=== PATIENT | female | born 1985 | race Caucasian/White ===

== ENCOUNTER 2021-01-01 16:32 | Observation (INO) ==
[2021-01-01] MEDS ORDERED: ONDANSETRON 4 MG/2 ML VIAL IV ONE (18:27)
[2021-01-01] MEDS: SODIUM CHLOR 0.9% KCL 40 MEQ 40 MEQ/1,000 ML BAG IV SCH (19:17)
[2021-01-01 19:30] LABS: Basophils # 0.1 10*3/uL (0.0-0.2); Basophils % 0.9 % (0.0-0.8); Eosinophils % 0.2 % (0.00-10.9); Hematocrit 34.3 VOL% (35.7-47.0); Immature Granulocytes % 0.6 %; Immature Granulocytes Absolute 0.06 #; Lymphocytes # 1.4 10*3/uL (1.4-4.0); Lymphocytes % 13.4 % (21.3-54.2); Mean Corpuscular Volume 112.1 FL (87-102); Mean Platelet Volume 11.1 FL (9.6-12.0); Monocytes % 8.9 % (1.7-12.7); Platelet Count 153 T/CUMM (130-400); Red Blood Count 3.06 MC/CUMM (3.8-5.5); Red Cell Distribution Width 13.7 % (9.3-17.3); White Blood Count 10.7 T/CUMM (4-12)
[2021-01-01 19:41] LABS: INR 1.9; PT Patient Result 19.5 SECS (9.8-11.9); Partial Thromboplastin Time 38.1 SECS (23.9-33.8)
[2021-01-01 20:01] LABS: Albumin 2.8 G/DL (3.4-5.0); Bilirubin,Total 3.8 MG/DL (0.2-1.0); Osmolality,Calculated 262.2 MOS/KG (273-304); Potassium 2.8 MMOL/L (3.5-5.1); Total Protein 7.4 G/DL (6.4-8.3)
[2021-01-01] MEDS ORDERED: MORPHINE 4 MG/1 ML VIAL IV STA (20:18)
[2021-01-01] MEDS ORDERED: ONDANSETRON 4 MG/2 ML VIAL IV STA (20:19)
[2021-01-01 20:29] LABS: Bacteria,Urine Occasional /HPF (Few); Bilirubin,Urine Negative (Negative); Blood, Urine Small mg/dL (Negative); Glucose,Urine (UA) Negative (Negative); Ketones,Urine Negative (Negative); Nitrite,Urine Negative (Negative); Protein,Urine Negative; RBC,Urine 4 /HPF (0-4); Squamous Epithelial Cell,Urine Occasional /HPF (0-10); Urine Appearance Slightly Hazy (Clear); Urine Color Yellow (Yellow); Urine Specific Gravity 1.025 (1.001-1.035); Urine Urobilinogen < 2.0 EU/DL (0.2-1.0); WBC,Urine 95 /HPF (0-6)
[2021-01-01] MEDS ORDERED: cefTRIAXone 1,000 MG in SODIUM CHLORIDE 0.9% 100 ML IV STA (20:46)
[2021-01-01 20:52] LABS: Hepatitis B Core IgM Quant < 0.05 Index; Hepatitis B Surface Ag Quant < 0.10 Index; Hepatitis B Surface Ag Result Non-Reactive (NonReactive); Hepatitis C Virus Ab Quant 0.05 Index; Hepatitis C Virus Ab Result Non-Reactive (NonReactive)
[2021-01-01] MEDS ORDERED: DEXTROSE 50% 25 GM/50 ML VIAL IV PRN (21:04)
[2021-01-01] MEDS ORDERED: GLUCAGON 1 MG VIAL IM PRN (21:04)
[2021-01-01] MEDS ORDERED: MAGNESIUM SULF RIDER 2 GM in PREMIX 1 EACH IV ONE (21:15)
[2021-01-01] MEDS ORDERED: LORazepam 2 MG/1 ML VIAL IV PRN (21:16)
[2021-01-01] MEDS: MORPHINE 4 MG/1 ML VIAL IV PRN (23:11)
[2021-01-01] MEDS: ONDANSETRON 4 MG/2 ML VIAL IV PRN (23:12)
[2021-01-02] MEDS: chlordiazePOXIDE 25 MG CAPSULE PO SCH ×3 (00:34→10:40)
[2021-01-02] MEDS: SODIUM CHLOR 0.9% KCL 40 MEQ 40 MEQ/1,000 ML BAG IV SCH (06:23)
[2021-01-02 07:35] LABS: Basophils # 0.1 10*3/uL (0.0-0.2); Basophils % 0.7 % (0.0-0.8); Eosinophils % 0.4 % (0.00-10.9); Hematocrit 31.3 VOL% (35.7-47.0); Hemoglobin 10.7 GM/DL (12.0-16.0); Immature Granulocytes % 0.6 %; Immature Granulocytes Absolute 0.06 #; Lymphocytes # 1.5 10*3/uL (1.4-4.0); Lymphocytes % 15.3 % (21.3-54.2); Mean Corpuscular HGB Conc 34.2 GM/DL (32-36); Mean Corpuscular Volume 113.8 FL (87-102); Mean Platelet Volume 11.2 FL (9.6-12.0); Monocytes % 12.2 % (1.7-12.7); Neutrophils % 70.8 % (38.7-73.9); Platelet Count 125 T/CUMM (130-400); Red Blood Count 2.75 MC/CUMM (3.8-5.5); Red Cell Distribution Width 14.1 % (9.3-17.3); White Blood Count 9.8 T/CUMM (4-12)
[2021-01-02] MEDS: MORPHINE 4 MG/1 ML VIAL IV PRN (07:46)
[2021-01-02] MEDS: ONDANSETRON 4 MG/2 ML VIAL IV PRN (07:47)
[2021-01-02 07:51] LABS: Albumin 2.5 G/DL (3.4-5.0); Bilirubin,Total 4.3 MG/DL (0.2-1.0); Calcium 7.7 MG/DL (8.5-10.1); Osmolality,Calculated 258.5 MOS/KG (273-304); Potassium 2.9 MMOL/L (3.5-5.1); Total Protein 6.7 G/DL (6.4-8.3)
[2021-01-02 08:43] LABS: Anisocytosis 1+; Macrocytosis 1+; Platelet Estimate Adequate
[2021-01-02] MEDS ORDERED: PANTOPRAZOLE 40 MG TABLET PO SCH (09:00)
[2021-01-02] MEDS ORDERED: THIAMINE 100 MG TABLET PO SCH (09:00)
[2021-01-02] MEDS ORDERED: MULTIVITAMIN (CENTRUM) TABLET PO SCH (09:00)
[2021-01-02] MEDS ORDERED: FOLIC ACID 1 MG TABLET PO SCH (09:00)
[2021-01-02 10:27] LABS: INR 1.3; PT Patient Result 13.6 SECS (9.8-11.9)
[2021-01-02] MEDS ORDERED: POTASSIUM CHLORIDE 20 MEQ TABLET PO ONE (11:05)
[2021-01-02 12:25] VITALS: BP 113/74
[2021-01-02] MEDS ORDERED: cefTRIAXone 1,000 MG in SODIUM CHLORIDE 0.9% 100 ML IV SCH (20:00)
== END 2021-01-02 13:35 | disposition home or self-care (01) | DRG 433 ==
LOC: N.ED 16:32 → INTOOBSV 21:05 → N.EDINP 21:05 → N.4E 22:47
PROVIDERS: ADMIT Internal Medicine; ATTEND Internal Medicine

== ENCOUNTER 2021-01-06 15:32 | Inpatient (IN) ==
[2021-01-06 17:19] LABS: Basophils # 0.1 10*3/uL (0.0-0.2); Basophils % 0.7 % (0.0-0.8); Eosinophils # 0.1 10*3/uL (0.0-0.87); Eosinophils % 0.7 % (0.00-10.9); Hematocrit 31.9 VOL% (35.7-47.0); Hemoglobin 10.8 GM/DL (12.0-16.0); Immature Granulocytes % 1.4 %; Immature Granulocytes Absolute 0.14 #; Lymphocytes # 1.9 10*3/uL (1.4-4.0); Lymphocytes % 19.3 % (21.3-54.2); Mean Corpuscular HGB Conc 33.9 GM/DL (32-36); Mean Corpuscular Volume 116.4 FL (87-102); Mean Platelet Volume 11.3 FL (9.6-12.0); Monocytes % 17.4 % (1.7-12.7); Neutrophils % 60.5 % (38.7-73.9); Platelet Count 174 T/CUMM (130-400); Red Blood Count 2.74 MC/CUMM (3.8-5.5); Red Cell Distribution Width 15.4 % (9.3-17.3); White Blood Count 9.9 T/CUMM (4-12)
[2021-01-06 17:25] LABS: Blood, Urine Negative (Negative); Glucose,Urine (UA) Negative (Negative); Ketones,Urine Negative (Negative); Nitrite,Urine Positive (Negative); Protein,Urine Negative; RBC,Urine 1 /HPF (0-4); Squamous Epithelial Cell,Urine Few /HPF (0-10); Urine Appearance CLEAR (Clear); Urine Color Amber (Yellow); Urine Specific Gravity 1.003 (1.001-1.035); WBC,Urine 3 /HPF (0-6)
[2021-01-06 17:32] LABS: Bilirubin,Urine Small mg/dL (Negative)
[2021-01-06 17:35] LABS: Alanine Aminotransferase 59 U/L (13-56); Albumin 2.5 G/DL (3.4-5.0); Alkaline Phosphatase 331 U/L (45-117); Amylase 20 U/L (25-115); Aspartate Amino Transferase 200 U/L (0-37); Blood Urea Nitrogen 4 MG/DL (7-18); Calcium 8.3 MG/DL (8.5-10.1); Carbon Dioxide 29 MMOL/L (21-32); Estimated Glom Filtration Rate 105 ML/MIN; Glucose 94 MG/DL (74-106); Osmolality,Calculated 256.8 MOS/KG (273-304); Potassium 2.6 MMOL/L (3.5-5.1); Sodium 130 MMOL/L (136-145); Total Protein 6.8 G/DL (6.4-8.9)
[2021-01-06 17:37] LABS: INR 1.6; PT Patient Result 16.6 SECS (9.8-11.9); Partial Thromboplastin Time 31.4 SECS (23.9-33.8)
[2021-01-06 17:48] LABS: Eosinophils 1 % (0-10); Lymphocytes 22 % (20-55); Segmented Neutrophils 64 % (50-85); Total Cells Counted 100
[2021-01-06 17:54] LABS: Polychromasia Few
[2021-01-06 17:55] LABS: Anisocytosis 1+; Macrocytosis 1+; Platelet Estimate Adequate; Target Cells Few
[2021-01-06] MEDS ORDERED: SODIUM CHLORIDE 0.9% 1,000 ML IV STA (18:48)
[2021-01-06] MEDS ORDERED: PIPERACILLIN/TAZOBACTAM 3,375 MG in SODIUM CHLORIDE 0.9% 100 ML IV STA (18:48)
[2021-01-06] MEDS ORDERED: POTASSIUM CHLORIDE 20 MEQ TABLET PO STA (18:49)
[2021-01-06] MEDS ORDERED: DEXTROSE 50% 25 GM/50 ML VIAL IV PRN (19:36)
[2021-01-06] MEDS ORDERED: GLUCAGON 1 MG VIAL IM PRN (19:36)
[2021-01-06] MEDS: SODIUM CHLOR 0.9% KCL 40 MEQ 40 MEQ/1,000 ML BAG IV SCH (21:30)
[2021-01-06] MEDS: cefTRIAXone 2,000 MG in SYRINGE 1 EACH IV SCH (21:30)
[2021-01-06] MEDS: MORPHINE 4 MG/1 ML VIAL IV PRN (22:26)
[2021-01-06] MEDS: IBUPROFEN 600 MG TABLET PO PRN (22:27)
[2021-01-06] MEDS: ONDANSETRON 4 MG/2 ML VIAL IV PRN (22:27)
[2021-01-07 04:58] LABS: Basophils # 0.1 10*3/uL (0.0-0.2); Basophils % 0.6 % (0.0-0.8); Eosinophils # 0.1 10*3/uL (0.0-0.87); Eosinophils % 0.9 % (0.00-10.9); Hematocrit 29.7 VOL% (35.7-47.0); Hemoglobin 9.9 GM/DL (12.0-16.0); Immature Granulocytes % 1.9 %; Immature Granulocytes Absolute 0.16 #; Lymphocytes # 1.5 10*3/uL (1.4-4.0); Lymphocytes % 17.2 % (21.3-54.2); Mean Corpuscular HGB Conc 33.3 GM/DL (32-36); Mean Corpuscular Volume 117.4 FL (87-102); Mean Platelet Volume 11.4 FL (9.6-12.0); Monocytes % 16.2 % (1.7-12.7); Neutrophils % 63.2 % (38.7-73.9); Platelet Count 187 T/CUMM (130-400); Red Blood Count 2.53 MC/CUMM (3.8-5.5); Red Cell Distribution Width 15.8 % (9.3-17.3); White Blood Count 8.6 T/CUMM (4-12)
[2021-01-07 05:29] LABS: Calcium 7.7 MG/DL (8.5-10.1); Osmolality,Calculated 264.4 MOS/KG (273-304); Potassium 3.3 MMOL/L (3.5-5.1)
[2021-01-07] MEDS: SODIUM CHLOR 0.9% KCL 40 MEQ 40 MEQ/1,000 ML BAG IV SCH ×2 (05:43→15:27)
[2021-01-07 06:25] LABS: Atypical Lymphocytes Few; Band Neutrophils 5 % (0-10); Eosinophils 3 % (0-10); Lymphocytes 14 % (20-55); Segmented Neutrophils 60 % (50-85); Total Cells Counted 100
[2021-01-07 06:26] LABS: Hypochromasia 1+; Macrocytosis 1+; Target Cells Slight
[2021-01-07 06:27] LABS: Platelet Estimate Adequate; Polychromasia Slight; Stomatocytes Slight
[2021-01-07 09:13] LABS: Albumin 2.4 G/DL (3.4-5.0); Bilirubin,Total 8.2 MG/DL (0.2-1.0); Calcium 7.7 MG/DL (8.5-10.1); Osmolality,Calculated 265.2 MOS/KG (273-304); Potassium 3.5 MMOL/L (3.5-5.1); Total Protein 6.1 G/DL (6.4-8.9)
[2021-01-07] MEDS: PANTOPRAZOLE 40 MG TABLET PO SCH (09:42)
[2021-01-07] MEDS: predniSONE 20 MG TABLET PO SCH (09:42)
[2021-01-07] MEDS: MORPHINE 4 MG/1 ML VIAL IV PRN ×2 (13:03→21:09)
[2021-01-07] MEDS: ONDANSETRON 4 MG/2 ML VIAL IV PRN (21:08)
[2021-01-07] MEDS: cefTRIAXone 2,000 MG in SYRINGE 1 EACH IV SCH (21:09)
[2021-01-08] MEDS: SODIUM CHLOR 0.9% KCL 40 MEQ 40 MEQ/1,000 ML BAG IV SCH ×2 (01:21→17:55)
[2021-01-08] MEDS: ONDANSETRON 4 MG/2 ML VIAL IV PRN ×3 (05:33→21:01)
[2021-01-08] MEDS: MORPHINE 4 MG/1 ML VIAL IV PRN ×3 (05:34→21:07)
[2021-01-08 05:56] LABS: Basophils # 0.1 10*3/uL (0.0-0.2); Basophils % 0.4 % (0.0-0.8); Eosinophils % 0.1 % (0.00-10.9); Hematocrit 29.6 VOL% (35.7-47.0); Hemoglobin 10.1 GM/DL (12.0-16.0); Immature Granulocytes % 2.5 %; Immature Granulocytes Absolute 0.29 #; Lymphocytes # 1.2 10*3/uL (1.4-4.0); Mean Corpuscular HGB Conc 34.1 GM/DL (32-36); Mean Corpuscular Volume 115.2 FL (87-102); Mean Platelet Volume 11.8 FL (9.6-12.0); Monocytes % 12.9 % (1.7-12.7); NRBC # 0.02 10*3/uL; Neutrophils % 74.1 % (38.7-73.9); Platelet Count 226 T/CUMM (130-400); Red Blood Count 2.57 MC/CUMM (3.8-5.5); Red Cell Distribution Width 16.1 % (9.3-17.3); White Blood Count 11.7 T/CUMM (4-12)
[2021-01-08 06:14] LABS: Albumin 2.1 G/DL (3.4-5.0); Bilirubin,Total 7.5 MG/DL (0.2-1.0); Calcium 7.7 MG/DL (8.5-10.1); Osmolality,Calculated 266.1 MOS/KG (273-304); Potassium 3.6 MMOL/L (3.5-5.1)
[2021-01-08] MEDS: predniSONE 20 MG TABLET PO SCH (08:43)
[2021-01-08] MEDS: PANTOPRAZOLE 40 MG TABLET PO SCH (08:43)
[2021-01-08] MEDS: cefTRIAXone 2,000 MG in SYRINGE 1 EACH IV SCH (21:01)
[2021-01-08] MEDS: ZALEPLON 5 MG CAPSULE PO PRN ×2 (21:02→21:17)
[2021-01-09] MEDS: MORPHINE 4 MG/1 ML VIAL IV PRN ×3 (04:16→20:05)
[2021-01-09] MEDS: ONDANSETRON 4 MG/2 ML VIAL IV PRN ×2 (04:17→20:02)
[2021-01-09 06:01] LABS: Basophils % 0.3 % (0.0-0.8); Eosinophils # 0.1 10*3/uL (0.0-0.87); Eosinophils % 0.4 % (0.00-10.9); Hematocrit 33.4 VOL% (35.7-47.0); Immature Granulocytes Absolute 0.27 #; Lymphocytes # 2.1 10*3/uL (1.4-4.0); Lymphocytes % 15.1 % (21.3-54.2); Mean Corpuscular HGB Conc 32.9 GM/DL (32-36); Mean Corpuscular Volume 121.5 FL (87-102); Mean Platelet Volume 11.1 FL (9.6-12.0); Monocytes % 13.9 % (1.7-12.7); Neutrophils % 68.3 % (38.7-73.9); Platelet Count 331 T/CUMM (130-400); Red Blood Count 2.75 MC/CUMM (3.8-5.5); Red Cell Distribution Width 17.1 % (9.3-17.3); White Blood Count 13.8 T/CUMM (4-12)
[2021-01-09 06:21] LABS: Calcium 7.6 MG/DL (8.5-10.1); Osmolality,Calculated 268.8 MOS/KG (273-304); Potassium 4.3 MMOL/L (3.5-5.1)
[2021-01-09 06:26] LABS: Platelet Estimate Adequate
[2021-01-09 06:28] LABS: Albumin 2.2 G/DL (3.4-5.0); Bilirubin,Direct 5.81 MG/DL (0.0-0.20); Bilirubin,Indirect 1.4 MG/DL (0.0-1.0); Bilirubin,Total 7.2 MG/DL (0.2-1.0); Total Protein 6.2 G/DL (5.0-7.5)
[2021-01-09] MEDS: LORazepam 2 MG/1 ML VIAL IV PRN (06:31)
[2021-01-09] MEDS ORDERED: MAGNESIUM SULF RIDER 2 GM in PREMIX 1 EACH IV ONE (09:09)
[2021-01-09] MEDS: PANTOPRAZOLE 40 MG TABLET PO SCH ×2 (09:24→09:33)
[2021-01-09] MEDS: predniSONE 20 MG TABLET PO SCH ×2 (09:24→09:33)
[2021-01-09] MEDS: FOLIC ACID 1 MG TABLET PO SCH ×2 (09:24→09:33)
[2021-01-09] MEDS: MULTIVITAMIN (OCUVITE) TABLET PO SCH ×2 (09:24→09:33)
[2021-01-09] MEDS: THIAMINE 200 MG/2 ML VIAL IV SCH (09:25)
[2021-01-09] MEDS: SODIUM CHLOR 0.9% KCL 40 MEQ 40 MEQ/1,000 ML BAG IV SCH ×2 (11:16)
[2021-01-09] MEDS: SODIUM CHLORIDE 0.9% 1,000 ML IV SCH (13:12)
[2021-01-09] MEDS: IBUPROFEN 600 MG TABLET PO PRN (13:12)
[2021-01-09 14:09] LABS: Hepatitis B Core IgM Quant < 0.05 Index; Hepatitis B Surface Ag Quant < 0.10 Index; Hepatitis B Surface Ag Result Non-Reactive (NonReactive); Hepatitis C Virus Ab Quant 0.04 Index; Hepatitis C Virus Ab Result Non-Reactive (NonReactive)
[2021-01-09] MEDS: PIPERACILLIN/TAZOBACTAM 3,375 MG in SODIUM CHLORIDE 0.9% 100 ML IV SCH ×2 (16:10→21:45)
[2021-01-09] MEDS: ENOXAPARIN 40 MG/0.4 ML SYRINGE SUBCUT SCH (16:11)
[2021-01-09 17:03] LABS: Blood, Urine Negative (Negative); Glucose,Urine (UA) Negative (Negative); Ketones,Urine Negative (Negative); Nitrite,Urine Negative (Negative); Protein,Urine Negative; Squamous Epithelial Cell,Urine Occasional /HPF (0-10); Urine Appearance CLEAR (Clear); Urine Color Amber (Yellow)
[2021-01-09 17:05] LABS: Bilirubin,Urine Small mg/dL (Negative)
[2021-01-10] MEDS: SODIUM CHLORIDE 0.9% 1,000 ML IV SCH ×4 (00:03→15:50)
[2021-01-10] MEDS: ZALEPLON 5 MG CAPSULE PO PRN ×2 (01:37→21:42)
[2021-01-10 02:48] LABS: Basophils # 0.1 10*3/uL (0.0-0.2); Basophils % 0.7 % (0.0-0.8); Eosinophils % 0.3 % (0.00-10.9); Hematocrit 31.5 VOL% (35.7-47.0); Hemoglobin 10.5 GM/DL (12.0-16.0); Immature Granulocytes % 1.5 %; Immature Granulocytes Absolute 0.22 #; Lymphocytes # 1.8 10*3/uL (1.4-4.0); Lymphocytes % 12.3 % (21.3-54.2); Mean Corpuscular HGB Conc 33.3 GM/DL (32-36); Mean Corpuscular Volume 119.8 FL (87-102); Mean Platelet Volume 10.8 FL (9.6-12.0); NRBC # 0.02 10*3/uL; Neutrophils % 74.2 % (38.7-73.9); Platelet Count 342 T/CUMM (130-400); Red Blood Count 2.63 MC/CUMM (3.8-5.5); Red Cell Distribution Width 16.8 % (9.3-17.3); White Blood Count 14.9 T/CUMM (4-12)
[2021-01-10 03:10] LABS: Albumin 2.1 G/DL (3.4-5.0); Bilirubin,Total 6.9 MG/DL (0.2-1.0); Calcium 7.1 MG/DL (8.5-10.1); Osmolality,Calculated 273.5 MOS/KG (273-304); Potassium 3.6 MMOL/L (3.5-5.1); Total Protein 5.8 G/DL (5.0-7.5)
[2021-01-10 03:57] LABS: Platelet Estimate Adequate
[2021-01-10] MEDS: ONDANSETRON 4 MG/2 ML VIAL IV PRN ×2 (04:58→19:17)
[2021-01-10] MEDS: MORPHINE 4 MG/1 ML VIAL IV PRN ×3 (05:00→19:17)
[2021-01-10] MEDS: PIPERACILLIN/TAZOBACTAM 3,375 MG in SODIUM CHLORIDE 0.9% 100 ML IV SCH ×3 (05:30→21:41)
[2021-01-10] MEDS: MULTIVITAMIN (OCUVITE) TABLET PO SCH (08:51)
[2021-01-10] MEDS: LORazepam 2 MG/1 ML VIAL IV PRN (08:51)
[2021-01-10] MEDS: THIAMINE 200 MG/2 ML VIAL IV SCH (08:51)
[2021-01-10] MEDS: FOLIC ACID 1 MG TABLET PO SCH (08:51)
[2021-01-10] MEDS: predniSONE 20 MG TABLET PO SCH (08:51)
[2021-01-10] MEDS: PANTOPRAZOLE 40 MG TABLET PO SCH (08:51)
[2021-01-10] MEDS: ENOXAPARIN 40 MG/0.4 ML SYRINGE SUBCUT SCH (14:44)
[2021-01-11] MEDS: SODIUM CHLORIDE 0.9% 1,000 ML IV SCH ×4 (01:06→18:22)
[2021-01-11] MEDS: ONDANSETRON 4 MG/2 ML VIAL IV PRN ×3 (03:49→20:31)
[2021-01-11] MEDS: MORPHINE 4 MG/1 ML VIAL IV PRN ×3 (03:51→14:33)
[2021-01-11 06:10] LABS: Basophils # 0.1 10*3/uL (0.0-0.2); Basophils % 0.4 % (0.0-0.8); Eosinophils # 0.2 10*3/uL (0.0-0.87); Hematocrit 29.9 VOL% (35.7-47.0); Hemoglobin 10.2 GM/DL (12.0-16.0); Immature Granulocytes % 1.6 %; Immature Granulocytes Absolute 0.24 #; Lymphocytes # 2.1 10*3/uL (1.4-4.0); Lymphocytes % 14.6 % (21.3-54.2); Mean Corpuscular HGB Conc 34.1 GM/DL (32-36); Mean Corpuscular Volume 114.1 FL (87-102); Mean Platelet Volume 10.8 FL (9.6-12.0); Monocytes % 9.2 % (1.7-12.7); NRBC # 0.02 10*3/uL; Neutrophils % 73.2 % (38.7-73.9); Platelet Count 342 T/CUMM (130-400); Red Blood Count 2.62 MC/CUMM (3.8-5.5); Red Cell Distribution Width 16.3 % (9.3-17.3); White Blood Count 14.6 T/CUMM (4-12)
[2021-01-11] MEDS: PIPERACILLIN/TAZOBACTAM 3,375 MG in SODIUM CHLORIDE 0.9% 100 ML IV SCH ×3 (06:15→22:42)
[2021-01-11 06:35] LABS: Bilirubin,Total 6.9 MG/DL (0.2-1.0); Calcium 7.3 MG/DL (8.5-10.1); Osmolality,Calculated 269.7 MOS/KG (273-304); Potassium 3.3 MMOL/L (3.5-5.1); Total Protein 5.6 G/DL (5.0-7.5)
[2021-01-11 06:40] LABS: Hypochromasia 1+; Macrocytosis 1+; Target Cells Few
[2021-01-11 06:41] LABS: Platelet Estimate Normal
[2021-01-11] MEDS: PANTOPRAZOLE 40 MG TABLET PO SCH (09:07)
[2021-01-11] MEDS: FOLIC ACID 1 MG TABLET PO SCH (09:07)
[2021-01-11] MEDS: THIAMINE 200 MG/2 ML VIAL IV SCH (09:08)
[2021-01-11] MEDS: MULTIVITAMIN (OCUVITE) TABLET PO SCH (09:09)
[2021-01-11] MEDS: predniSONE 20 MG TABLET PO SCH (09:09)
[2021-01-11] MEDS: ENOXAPARIN 40 MG/0.4 ML SYRINGE SUBCUT SCH (13:40)
[2021-01-11] MEDS ORDERED: oxyCODONE IR 5 MG TABLET PO PRN (15:11)
[2021-01-11] MEDS ORDERED: POTASSIUM CHLORIDE 20 MEQ/15 ML UDCUP PO ONE (16:32)
[2021-01-11] MEDS: MORPHINE ER 15 MG TABLET PO SCH (20:30)
[2021-01-11] MEDS: ZALEPLON 5 MG CAPSULE PO PRN (22:41)
[2021-01-12] MEDS ORDERED: diphenhydrAMINE CAP 25 MG CAPSULE ONE (02:32)
[2021-01-12] MEDS: diphenhydrAMINE CAP 25 MG CAPSULE PO PRN ×2 (02:33→22:55)
[2021-01-12] MEDS: IBUPROFEN 600 MG TABLET PO PRN (05:23)
[2021-01-12] MEDS: PIPERACILLIN/TAZOBACTAM 3,375 MG in SODIUM CHLORIDE 0.9% 100 ML IV SCH ×3 (05:51→20:44)
[2021-01-12 06:15] LABS: Basophils % 0.3 % (0.0-0.8); Eosinophils # 0.1 10*3/uL (0.0-0.87); Eosinophils % 0.7 % (0.00-10.9); Hematocrit 29.3 VOL% (35.7-47.0); Immature Granulocytes % 1.9 %; Immature Granulocytes Absolute 0.23 #; Lymphocytes # 1.8 10*3/uL (1.4-4.0); Mean Corpuscular HGB Conc 34.1 GM/DL (32-36); Mean Corpuscular Volume 114.9 FL (87-102); Mean Platelet Volume 10.9 FL (9.6-12.0); Monocytes % 8.7 % (1.7-12.7); Neutrophils % 73.4 % (38.7-73.9); Platelet Count 312 T/CUMM (130-400); Red Blood Count 2.55 MC/CUMM (3.8-5.5); Red Cell Distribution Width 16.2 % (9.3-17.3); White Blood Count 12.3 T/CUMM (4-12)
[2021-01-12 06:40] LABS: Anisocytosis 1+; Hypochromasia 1+; Macrocytosis 1+; Polychromasia Slight; Target Cells Few
[2021-01-12 06:41] LABS: Platelet Estimate Normal
[2021-01-12 06:43] LABS: Alanine Aminotransferase 36 U/L (13-56); Albumin 1.9 G/DL (3.4-5.0); Alkaline Phosphatase < 10 U/L (45-117); Aspartate Amino Transferase 144 U/L (0-37); Blood Urea Nitrogen 5 MG/DL (7-18); Calcium 7.4 MG/DL (8.5-10.1); Carbon Dioxide 25 MMOL/L (21-32); Estimated Glom Filtration Rate 130 ML/MIN; Glucose 67 MG/DL (74-106); Osmolality,Calculated 271.5 MOS/KG (273-304); Potassium 3.1 MMOL/L (3.5-5.1); Sodium 139 MMOL/L (136-145); Total Protein 5.5 G/DL (5.0-7.5)
[2021-01-12] MEDS ORDERED: THIAMINE 100 MG TABLET PO SCH (09:00)
[2021-01-12] MEDS: MORPHINE ER 15 MG TABLET PO SCH ×2 (09:22→20:43)
[2021-01-12] MEDS: MULTIVITAMIN (OCUVITE) TABLET PO SCH (10:00)
[2021-01-12] MEDS: predniSONE 20 MG TABLET PO SCH (10:01)
[2021-01-12] MEDS: FOLIC ACID 1 MG TABLET PO SCH (10:01)
[2021-01-12] MEDS: PANTOPRAZOLE 40 MG TABLET PO SCH (10:03)
[2021-01-12] MEDS: SODIUM CHLORIDE 0.9% 1,000 ML IV SCH (10:14)
[2021-01-12] MEDS ORDERED: POTASSIUM CHLORIDE 20 MEQ/15 ML UDCUP PO ONE ×2 (15:00→15:31)
[2021-01-12] MEDS: ZALEPLON 5 MG CAPSULE PO PRN (22:55)
[2021-01-13] MEDS: PIPERACILLIN/TAZOBACTAM 3,375 MG in SODIUM CHLORIDE 0.9% 100 ML IV SCH (05:55)
[2021-01-13 06:10] LABS: Basophils % 0.3 % (0.0-0.8); Eosinophils # 0.1 10*3/uL (0.0-0.87); Eosinophils % 0.7 % (0.00-10.9); Hematocrit 30.2 VOL% (35.7-47.0); Hemoglobin 10.1 GM/DL (12.0-16.0); Immature Granulocytes % 2.1 %; Lymphocytes # 1.9 10*3/uL (1.4-4.0); Lymphocytes % 13.4 % (21.3-54.2); Mean Corpuscular HGB Conc 33.4 GM/DL (32-36); Mean Corpuscular Volume 116.2 FL (87-102); Mean Platelet Volume 10.9 FL (9.6-12.0); Monocytes % 8.2 % (1.7-12.7); Neutrophils % 75.3 % (38.7-73.9); Platelet Count 342 T/CUMM (130-400)
[2021-01-13 06:35] LABS: Albumin 1.9 G/DL (3.4-5.0); Bilirubin,Total 7.2 MG/DL (0.2-1.0); Potassium 3.3 MMOL/L (3.5-5.1); Total Protein 5.5 G/DL (5.0-7.5)
[2021-01-13 06:40] LABS: Hypochromasia 1+; Macrocytosis 1+
[2021-01-13 06:41] LABS: Platelet Estimate Normal; Polychromasia Slight; Target Cells Few
[2021-01-13] MEDS ORDERED: LACTATED RINGERS 1,000 ML IV SCH (08:00)
[2021-01-13] MEDS ORDERED: POTASSIUM CHLORIDE INJ 10 MEQ in SODIUM CHLORIDE 0.9% 1,000 ML IV SCH (12:00)
[2021-01-13] MEDS ORDERED: LIDOCAINE 2% 5 ML VIAL ONE (14:09)
[2021-01-13] MEDS ORDERED: propofoL 200 MG/20 ML VIAL IV ONE ×2 (14:09→14:18)
[2021-01-13 14:52] VITALS: BP 111/65
[2021-01-13 16:45] LABS: HIV Antigen/Antibody Result Nonreactive (Nonreactive)
== END 2021-01-13 17:21 | DRG 433 ==
LOC: N.ED 15:32 → N.EDINP 15:32 → N.5E 20:38 → SUATTDRO 01-07 13:21 → UNDODISIN 01-13 15:00
PROVIDERS: ADMIT Emergency Medicine; ATTEND Internal Medicine